=== PATIENT | male | born 2000 | race Caucasian/White ===

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

== ENCOUNTER → 2022-01-02 | Outpatient (CLI) | payer OTHER ==
--- NOTE | 2022-01-02 19:45 | XR ---
EXAMINATION TYPE: XR chest 2V DATE OF EXAM: 01/02/2022 COMPARISON: 01/15/2009 HISTORY: Chest tightness TECHNIQUE: 2 view FINDINGS: Heart and mediastinum are normal. Lungs are clear. Diaphragm is normal. Bony thorax is inta ct. IMPRESSION: Normal chest. No change.
== END | disposition home or self-care (01) ==
LOC: RADCTMAIN 18:12
PROVIDERS: ATTEND Emergency Medicine
DX: R07.89 Other chest pain (principal)
CPT/HCPCS: 71046

== ENCOUNTER → 2024-08-01 | Outpatient (CLI) | payer OTHER ==
--- NOTE | 2024-08-01 15:20 | XR ---
EXAMINATION TYPE: XR hand complete RT, XR wrist complete RT DATE OF EXAM: 08/01/2024 2:46 PM CLINICAL INDICATION: Male, 23 years old with history of S66.110A, R20.9; [facility] COMPARISON: None TECHNIQUE: XR hand complete RT, XR wrist complete RT Frontal, lateral and oblique views were obtained . FINDINGS: Normal alignment of the visualized joints. No acute osseous pathology is identified. No e vidence of soft tissue swelling. No significant degeneration remote fracture of the scaphoid which is completely fused. IMPRESSION: No acute osseous pathology. [facility], , 08/01/2024 3:17 PM
== END | disposition home or self-care (01) ==
LOC: RADXRMAIN 14:01
PROVIDERS: ATTEND Emergency Medicine
DX: S66.110A Strain of flexor muscle, fascia and tendon of right index finger at wrist and hand level, initial encounter (principal); R20.9 Unspecified disturbances of skin sensation

== ENCOUNTER → 2024-08-15 | Outpatient (CLI) | payer OTHER ==
--- NOTE | 2024-08-15 15:19 | XR ---
EXAMINATION TYPE: XR forearm RT DATE OF EXAM: 08/15/2024 3:02 PM CLINICAL INDICATION: Male, 24 years old with history of S66.110D R20.9 UNSPECIFIED DISTURBANCES OF SK IN SE; [facility] COMPARISON: None TECHNIQUE: XR forearm RT; forearm was examined in AP and lateral projections. FINDINGS: No acute osseous pathology, soft tissue swelling or joint dislocations are seen. IMPRESSION: No evidence of acute fracture. [facility], , 08/15/2024 3:17 PM
== END | disposition home or self-care (01) ==
LOC: RADXRMAIN 14:41
PROVIDERS: ATTEND Emergency Medicine
DX: S66.110D Strain of flexor muscle, fascia and tendon of right index finger at wrist and hand level, subsequent encounter (principal); R20.9 Unspecified disturbances of skin sensation

== ENCOUNTER → 2024-08-23 | Outpatient (CLI) | payer OTHER ==
--- NOTE | 2024-08-23 10:03 | XR ---
EXAMINATION TYPE: XR forearm 2 views LT, XR hand complete 3 views LT DATE OF EXAM: 08/23/2024 COMPARISON: NONE HISTORY: 24-year-old male pain and swelling, S66.110D [id number] FLEXOR MUSC/FASC/TEND R IDX FINDINGS: Forearm: No joint effusion. No acute fracture seen of either radius or ulna. No periostitis or osteolysis. Hand: No marginal erosions or soft tissue calcifications. Joint spaces throughout are maintained. No acute fracture, subluxation, or dislocation. IMPRESSION: Forearm and hand without acute osseous abnormality seen. [facility], , 08/23/2024 10:01 AM
== END | disposition home or self-care (01) ==
LOC: RADXRMAIN 09:42
PROVIDERS: ATTEND Emergency Medicine

== ENCOUNTER → 2025-03-21 | Outpatient (CLI) | payer BC | END | disposition home or self-care (01) | LOC: LABWHC1 08:42 | PROVIDERS: ATTEND Dermatology | DX: L21.8 Other seborrheic dermatitis (principal); L73.2 Hidradenitis suppurativa; Z79.899 Other long term (current) drug therapy | CPT/HCPCS: 36415; 86480 ==